=== PATIENT | male | born 1995 | race Caucasian/White ===

== ENCOUNTER 2021-11-10 16:01 | Emergency (ER) | payer MEDICAID ==
[~2021-11-10] VITALS: Ht 172.7 cm; Wt 97.5 kg
[2021-11-10 16:49] VITALS: BP 140/86
[2021-11-10] MEDS ORDERED: IBUP800T27 PO (16:55)
== END 2021-11-10 16:58 | disposition home or self-care (01) ==
LOC: ER 16:01
DX: S90.31XA Contusion of right foot, initial encounter (principal); Z79.1 Long term (current) use of non-steroidal anti-inflammatories (NSAID); W20.8XXA Other cause of strike by thrown, projected or falling object, initial encounter; Y93.89 Activity, other specified; Y92.89 Other specified places as the place of occurrence of the external cause; Y99.8 Other external cause status
CPT/HCPCS: 73630